=== PATIENT | female | born 1960 | race Hispanic/Latino ===

== ENCOUNTER → 2019-06-08 | Day surgery (SDC) | payer BC ==
[2019-06-05 16:27] LABS: BASOPHILS % 0.3 % (0.0-1.0); EOSINOPHILS # (AUTO) 0.1 (0.0-0.4); EOSINOPHILS % 1.2 % (0.0-6.0); HEMATOCRIT 44.3 % (34.2-44.1); HEMOGLOBIN 14.4 g/dL (12.0-16.0); LYMPHOCYTES # (AUTO) 1.7 (1.0-3.2); LYMPHOCYTES % 29.8 % (18.0-39.1); MEAN CORPUSCULAR HEMOGLOBIN 30.9 pg (28-32); MEAN CORPUSCULAR HGB CONC 32.5 g/dL (31-35); MEAN CORPUSCULAR VOLUME 95.1 fL (81-99); MONOCYTES # (AUTO) 0.4 (0.2-0.8); MONOCYTES % 7.2 % (4.4-11.3); NEUTROPHILS # (AUTO) 3.6 (2.1-6.9); NEUTROPHILS % 61.3 % (38.7-80.0); PLATELET COUNT 264 x10e3/uL (140-360); RED BLOOD COUNT 4.66 x10e6/uL (3.6-5.1); RED CELL DISTRIBUTION WIDTH 13.4 % (11.7-14.4)
--- NOTE | 2019-06-05 16:43 | Diagnostic Imaging Report ---
Chest, 2 views, 06/05/2019. History: Preop, right foot surgery. Comparison: None available. Findings: The cardiomediastinal silhouette and pulmonary vasculature are within normal limits. There is minimal biapical pleural thickening. The lungs are clear without evidence of consolidation or pleural effusion. Mild degenerative changes are noted in the thoracic spine. There are no acute osseous or soft tissue abnormalities. Impression: No acute cardiopulmonary abnormality. Signed by: Mohit Jordan on 06/05/2019 4:40 PM
[2019-06-05 16:48] LABS: ANION GAP 12.1 mmol/L (8-16); BLOOD UREA NITROGEN 11 mg/dL (7-26); BUN/CREATININE RATIO 14 (6-25); CALCIUM 9.7 mg/dL (8.4-10.2); CARBON DIOXIDE 28 mmol/L (22-29); CHLORIDE 104 mmol/L (98-107); CREATININE, SERUM 0.79 mg/dL (0.57-1.11); EST GLOMERULAR FILTRATION RATE > 60 ML/MIN (60-); GLUCOSE 92 mg/dL (74-118); POTASSIUM 4.1 mmol/L (3.5-5.1); SODIUM 140 mmol/L (136-145)
[~2019-06-08] MED LIST: ACETAMINOPHEN 1000 MG/100 ML IV ONE; BUPIVACAINE HCL 0.5% INJ 30 ML VIAL INJ ONE; CLINDAMYCIN PHOS 900MG/ 50ML 50 ML IV ONE; DEXAMETHASONE SOD PHOS 10 MG/1 ML VIAL ONE; DEXAMETHASONE SOD PHOS INJ 4 MG/ML VIAL ONE; FENTANYL CITRATE/PF 100MCG/2 ML INJ ONE; KETOROLAC TROMETHAMINE 30 MG/ML VIAL ONE; LIDOCAINE HCL 2% LOCAL INJ 5 ML SDV VIAL INJ ONE; MIDAZOLAM HCL 2 MG/2 ML VIAL ONE; NEOSTIGMINE 1 MG/ML 10ML VIAL ONE; ONDANSETRON HCL INJ 2MG/ML 2ML 2 MG/ML VIAL ONE; PROPOFOL IV EMULSION 10 MG/ML 20 ML VIAL ONE; SEVOFLURANE INHAL SOLN 250 ML PEN BTL ONE
--- OUTSIDE RECORDS SUMMARY | 2019-06-08 06:54 | XMS REPORT ---
Author [facility] Address Unknown Phone Unavailable Care Team Providers Care Metallurgical Specialist Name Role Phone CARLOS LONGO Unavailable Unavailable Problems This patient has no known problems. Allergies, Adverse Reactions, Alerts This patient has no known allergies or adverse reactions. Medications This patient has no known medications. Results Test Description Test Time Test Comments Text Results Atomic Results Result Comments CHEST 2 VIEWS 2019-06-05 16:39:00 [place] [address] Patient Name: JENN HATCH MR #: [id number] : 1960 Age/Sex: 59/F Req #: [id number] Adm Physician: Ordered by: CARLOS LONGO DPM Report #: [id number] Location: OR Room/Bed: Procedure: [id number] DX/CHEST 2 VIEWS Exam Date: 06/05/19 Exam Time: 1615 REPORT STATUS: Signed Chest, 2 views, 06/05/2019. History: Preop, right foot surgery. Comparison: None available. Findings: The cardiomediastinal silhouette and pulmonary vasculature are within normal limits. There is minimal biapical pleural thickening. The lungs are clear without evidence of consolidation or pleural effusion. Mild degenerative changes are noted in the thoracic spine. There are no acute osseous or soft tissue abnormalities. Impression: No acute cardiopulmonary abnormality. Signed by: Janna Jordan on 06/05/2019 4:40 PM Dictated By: JANNA JORDAN MD 1640 Trans cribed By: MARITO on 06/05/19 1640 COPY TO: CARLOS LONGO DPVin BREAST ULTRASOUND LEFT 2019-02-28 09:05:12 - BREAST ULTRASOUND LEFTULTRASOUND OF LEFT BREAST AND LEFT AXILLA: 02/28/2019CLINICAL: LT Lump axilla x 1 month. Comparison is made to exam dated 02/28/2019 mammogram - [facility]. Color flow, real-time, and Doppler ultrasound of the left breast and axilla were performed. [place] scale images of the real-time examination were reviewed. No abnormalities were seen sonographically in the left breast or the left axilla. IMPRESSION: BENIGN There is no sonographic evidence of malignancy. Resume annual screening mammography in one year. Lokesh Crespo M.D. et/:02/28/2019 09:05:12 Entry: torsten 03/05/2019 12:27:58Imaging Technologist: Marycruz Mustafa , [facility]-FWletter sent: BIRADS 1-2 Combo FU Letter Ultrasound BI-RADS: 2 Benign DIAG MAMM BILATERAL CRYSTAL CAD DIGITAL 2019-02-28 09:04:40 - DIAG MAMM BILATERAL CRYSTAL CAD DIGITALBILATERAL DIGITAL DIAGNOSTIC MAMMOGRAM 3D/2D WITH CAD: 02/28/2019Digital breast tomosynthesis was performed in addition to routine CC and MLO views. Current mammographic images were evaluated by either a [employer] M- Vu or a [employer] ImageChecker CAD (computer aided detection system). Comparison is made to exam dated 05/16/2015 mammogram - [facility]. There are scattered fibroglandular tissues in both breasts. There are benign calcifications in both breasts. No suspicious mass, architectural distortion, malignant type calcification, or lymph node abnormality detected. IMPRESSION: INCOMPLETE ASSESSMENT: ADDITIONAL IMAGING EVALUATION RECOMMENDEDThere is no mammographic abnormality seen in the left breast to correspond with the reported palpable abnormality; however, further workup with ultrasound is recommended. Lokesh Crespo M.D. et/:02/28/2019 09:04:40 Entry: torsten 03/05/2019 12:26:23Imaging Technologist: Lawanda Go FW, [facility]- FWMammogram BI-RADS: 0 Indeterminate
[2019-06-08 10:55] VITALS: BP 118/90
--- NOTE | 2019-06-08 23:59 | Operative Report ---
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 TITLE OF THE OPERATION: Excision of neuroma 3rd intermetatarsal space, right foot. ANESTHESIA: General endotracheal. HEMOSTASIS: A right thigh tourniquet at 350 mmHg. PROCEDURE IN DETAIL: The patient was taken to the operating room in a mildly sedated state, placed on the operating table in supine position. Following induction of general anesthetic, the right lower extremity was elevated to 60 degrees to exsanguinate before inflating the pneumatic thigh tourniquet to 350 mmHg to create good hemostasis. Right lower extremity was placed on the operating table prior to performing the following procedure: PROCEDURE #1: Neuroma, 3rd intermetatarsal space of the right foot and approximate 3 cm dorsal incision was made overlying the dorsal aspect of the 3rd intermetatarsal space of right foot. The incision was deepened via sharp and blunt dissection below the dorsal capsular structure. Care was taken to identify, retract all vital structures encountered. The 3rd intermetatarsal space was identified and transverse intermetatarsal ligament was sectioned allowing deliverance of the large neuroma into the interspace. This was dissected distally and proximally resected from the wound in toto. The area was irrigated with copious amounts of sterile saline solution. Deep closure with 3-0 Vicryl, subcutaneous closure with 4-0 Vicryl, skin closure with 4-0 nylon. An injection with human tissue allograft flowable was performed and placed near the stump end of the neuroma to prevent recurrence. The patient left the operating room with vital signs stable in apparent satisfactory condition having tolerated both the anesthetic and procedure very well. MT Pickard/MODL /[id number]
== END | disposition home or self-care (01) ==
LOC: OR 06:50
PROVIDERS: ATTEND Podiatrist Foot Surgery
DX: G57.61 Lesion of plantar nerve, right lower limb (principal); M79.671 Pain in right foot; Z01.810 Encounter for preprocedural cardiovascular examination; Z01.812 Encounter for preprocedural laboratory examination; Z01.811 Encounter for preprocedural respiratory examination; Z88.0 Allergy status to penicillin
CPT/HCPCS: 36415; 71046; 80048; 85025; 88304; 93005; J1100; J1885; J2001; J2250; J2405; J2710; J3010; Q4100